=== PATIENT | female | born 1965 | race Caucasian/White ===

== ENCOUNTER 2019-07-11 19:32 | Emergency (ER) | payer SELFPAY ==
[~2019-07-11] VITALS: Ht 165.1 cm; Wt 98.7 kg
[~2019-07-11 19:32] MED LIST: GABA-826 PO; IBUP-1623 PO; LISI1TAB20 PO; PHEN100C PO
[2019-07-11 19:36] VITALS: BP 150/94
[2019-07-11] MEDS ORDERED: LIDOCAINE-MPF 1%, 5ML ONE (19:47)
[2019-07-11] MEDS ORDERED: LIDOCAINE-MPF 1%, 5ML INFIL ONE (20:00)
--- NOTE | 2019-07-11 20:31 | NUR ---
neosporin, xerofoarm, gauze and kerlex used to dress patient left great toe.
== END 2019-07-11 20:33 | disposition home or self-care (01) ==
LOC: ED 20:25
DX: L60.0 Ingrowing nail (principal); I10 Essential (primary) hypertension
CPT/HCPCS: 11730; 99283

== ENCOUNTER 2020-05-09 12:30 | Emergency (ER) | payer SELFPAY ==
[~2020-05-09] VITALS: Ht 162.6 cm; Wt 97.8 kg
[2020-05-09 12:33] VITALS: BP 164/88
--- NOTE | 2020-05-09 13:05 | NUR ---
Ishmael erickson in ED - 05/09/20 at 1312 by KE YARN SORTER: NO ANSWER FOR TRIAGE
--- NOTE | 2020-05-09 13:14 | NUR ---
PT REPORTS SHE HAD A FALL TWO WEEKS AGO AND IS HAVING LEFT WRIST PAIN. SWELLING NOTED. VS STABLE. NO ACUTE DISTRESS NOTED. WILL CONTINUE TO MONITOR.
--- NOTE | 2020-05-09 13:22 | NUR ---
DR MENENDEZ IN ROOM
--- NOTE | 2020-05-09 14:27 | NUR ---
PT RESTING IN ROOM. NO ACUTE DISTRESS NOTED. CALL LIGHT IN PLACE. WILL CONTINUE TO MONITOR.
== END 2020-05-09 14:44 | disposition home or self-care (01) ==
LOC: ED 13:17
DX: S63.522A Sprain of radiocarpal joint of left wrist, initial encounter (principal); M19.032 Primary osteoarthritis, left wrist; I10 Essential (primary) hypertension; W01.0XXA Fall on same level from slipping, tripping and stumbling without subsequent striking against object, initial encounter; Y93.89 Activity, other specified; Y92.89 Other specified places as the place of occurrence of the external cause; Y99.0 Civilian activity done for income or pay
CPT/HCPCS: 99283